=== PATIENT | male | born 1985 | race Caucasian/White ===

== ENCOUNTER 2020-04-09 18:45 | Observation (INO) | payer SELFPAY ==
[~2020-04-09] VITALS: Ht 172.7 cm; Wt 79.4 kg
[2020-04-09] MEDS ORDERED: ACETAMINOPHEN 325 MG TAB ONE (21:15)
[2020-04-09] MEDS ORDERED: ONDANSETRON HCL INJ 2MG/ML 2ML 2 MG/ML VIAL IV STA (21:21)
[2020-04-09] MEDS ORDERED: HYDROMORPHONE 1MG/1ML INJ IV STA (21:21)
[2020-04-09] MEDS ORDERED: VANCOMYCIN 1GM/NS 250 ML 250 ML IV ONE (21:30)
[2020-04-09] MEDS: PIPER-TAZ 3.375 GM 50 ML IV ONE ×2 (22:55→22:57)
[2020-04-09 23:15] LABS: BASOPHILS % 0.2 % (0.0-1.0); EOSINOPHILS # (AUTO) 0.1 (0.0-0.4); EOSINOPHILS % 0.9 % (0.0-6.0); HEMATOCRIT 40.7 % (38.2-49.6); HEMOGLOBIN 13.7 g/dL (14.0-18.0); LYMPHOCYTES # (AUTO) 1.8 (1.0-3.2); MEAN CORPUSCULAR HEMOGLOBIN 30.5 pg (28-32); MEAN CORPUSCULAR HGB CONC 33.7 g/dL (31-35); MEAN CORPUSCULAR VOLUME 90.6 fL (81-99); MONOCYTES # (AUTO) 1.2 (0.2-0.8); MONOCYTES % 13.1 % (4.4-11.3); NEUTROPHILS # (AUTO) 5.8 (2.1-6.9); NEUTROPHILS % 65.6 % (38.7-80.0); PLATELET COUNT 203 x10e3/uL (140-360); RED BLOOD COUNT 4.49 x10e6/uL (4.3-5.7)
[2020-04-09 23:31] LABS: ALANINE AMINOTRANSFERASE 33 IU/L (0-55); ALBUMIN 3.9 g/dL (3.5-5.0); ALBUMIN/GLOBULIN RATIO 1.2 (0.8-2.0); ALKALINE PHOSPHATASE 77 IU/L (40-150); ANION GAP 11.8 mmol/L (8-16); BLOOD UREA NITROGEN 13 mg/dL (7-26); BUN/CREATININE RATIO 14 (6-25); CALCIUM 9.1 mg/dL (8.4-10.2); CARBON DIOXIDE 27 mmol/L (22-29); CHLORIDE 107 mmol/L (98-107); CREATININE, SERUM 0.93 mg/dL (0.72-1.25); EST GLOMERULAR FILTRATION RATE > 60 ML/MIN (60-); GLUCOSE 93 mg/dL (74-118); POTASSIUM 3.8 mmol/L (3.5-5.1); SODIUM 142 mmol/L (136-145)
[2020-04-10] VITALS (7 sets, daily range): BP systolic 97–128; BP diastolic 64–79
[2020-04-10] MEDS ORDERED: MORPHINE SULFATE INJ 4 MG/ML INJ 1ML IV PRN (00:45)
[2020-04-10] MEDS ORDERED: SODIUM CHLORIDE 0.9% 1000ML 1,000 ML IV SCH (00:45)
[2020-04-10] MEDS: HYDROMORPHONE 1MG/1ML INJ IV PRN ×6 (02:00→19:38)
[2020-04-10] MEDS: PIPER-TAZ 3.375 GM 50 ML IV SCH ×3 (07:25→17:16)
[2020-04-10] MEDS ORDERED: ONDANSETRON HCL INJ 2MG/ML 2ML 2 MG/ML VIAL IV PRN (08:45)
[2020-04-10] MEDS ORDERED: VANCOMYCIN 1GM/NS 250 ML 250 ML IV SCH ×2 (09:30→14:00)
[2020-04-10] MEDS ORDERED: DEXAMETHASONE SOD PHOS INJ 4 MG/ML VIAL ONE (13:23)
[2020-04-10] MEDS ORDERED: ONDANSETRON HCL INJ 2MG/ML 2ML 2 MG/ML VIAL ONE (13:23)
[2020-04-10] MEDS ORDERED: LIDOCAINE HCL 2% LOCAL INJ 5 ML SDV VIAL INJ ONE (13:23)
[2020-04-10] MEDS ORDERED: SEVOFLURANE INHAL SOLN 250 ML PEN BTL ONE (13:23)
[2020-04-10] MEDS ORDERED: PROPOFOL IV EMULSION 10 MG/ML 20 ML VIAL ONE (13:23)
[2020-04-10] MEDS ORDERED: MIDAZOLAM HCL 2 MG/2 ML VIAL ONE (13:28)
[2020-04-10] MEDS ORDERED: FENTANYL CITRATE/PF 100MCG/2 ML INJ ONE (13:28)
[2020-04-10] MEDS ORDERED: FAMOTIDINE 20 MG/2 ML VIAL IV ONE (14:17)
[2020-04-10] MEDS ORDERED: HYDROCODONE/APAP 7.5MG-325MG 1 EA TAB PO PRN (14:45)
[2020-04-10] MEDS ORDERED: TYLENOL # 31 EA PO (18:34)
[2020-04-10] MEDS ORDERED: KEFLEX500 MG PO (18:35)
== END 2020-04-10 19:52 | disposition home or self-care (01) ==
LOC: ER 21:23 → ERHOLD 04-10 00:35 → MED/SURG2 04-10 02:25
PROVIDERS: ADMIT Surgery; ATTEND Surgery
DX: L02.426 Furuncle of left lower limb (principal); L02.416 Cutaneous abscess of left lower limb; L03.116 Cellulitis of left lower limb; Z72.0 Tobacco use; Z20.828 Contact with and (suspected) exposure to other viral communicable diseases
CPT/HCPCS: 11043; 36415; 80053; 85025; 87040; 96360; 96361; 99284; G0378; J1100; J1170 ×2; J2001; J2405 ×2; J2543 ×2; J2704; J3370; J7030; U0002; J2250; J3010